=== PATIENT | male | born 1965 | race Caucasian/White ===

== ENCOUNTER → 2018-09-28 | Outpatient (CLI) | payer BC ==
[2018-09-28 17:23] LABS: HGB 16.1 gm/dL (13.0-17.5); MCH 28.7 pg (25.0-35.0); MCHC 32.9 g/dL (31.0-37.0); MCV 87.3 fL (80.0-100.0); Mean Platelet Volume 6.7; Platelet Count 228 k/uL (150-450); RBC 5.61 m/uL (4.30-5.90); RDW 12.5 % (11.5-15.5); WBC 6.4 k/uL (3.8-10.6)
[2018-09-28 17:31] LABS: Potassium 4.1 mmol/L (3.5-5.1)
== END | disposition home or self-care (01) ==
LOC: LABPAT 16:25
PROVIDERS: ATTEND Internal Medicine Interventional Cardiology
DX: Z01.812 Encounter for preprocedural laboratory examination (principal); I20.9 Angina pectoris, unspecified; I10 Essential (primary) hypertension; E78.1 Pure hyperglyceridemia
CPT/HCPCS: 80051; 82565; 84520; 85027

== ENCOUNTER 2018-10-04 05:28 | Day surgery (SDC) | payer BC ==
[2018-10-02 10:58] VITALS: BMI 29.3
[~2018-10-04 05:28] MED LIST: ASPIRIN 325 MG TAB PO ONE; NITROGLYCERIN SL TABS 0.4 MG TAB SUBLINGUAL PRN; SODIUM CHLORIDE 0.9% 1,000 ML in EMPTY BAG 1 BAG IV ONE
[2018-10-04] MEDS ORDERED: ALPRAZolam 0.25 MG TAB PO PRN (06:00)
[2018-10-04] MEDS ORDERED: VERAPAMIL 2.5 MG/ML 2 ML AMP ONE (06:03)
[2018-10-04] MEDS ORDERED: HEPARIN SODIUM 1,000 UN/ML (10ML VL) ONE (06:04)
[2018-10-04] MEDS ORDERED: LIDOCAINE 1% INJ 10MG/ML (20 ML MDV) ONE (06:04)
[2018-10-04] MEDS ORDERED: fentaNYL (PF) 50 MCG/ML 2 ML AMP ONE (06:04)
[2018-10-04] MEDS ORDERED: SODIUM CHLORIDE 0.9% 1,000 ML IV ONE (06:07)
[2018-10-04 06:13] VITALS: RESP 16
[2018-10-04] MEDS ORDERED: fentaNYL (PF) 50 MCG/ML 2 ML AMP IV ONE (06:27)
[2018-10-04] MEDS ORDERED: LIDOCAINE 1% INJ 10MG/ML (20 ML MDV) SQ ONE (06:30)
[2018-10-04] MEDS ORDERED: VERAPAMIL SYRINGE (5 MG/10 ML) INTRAARTER ONE (06:32)
[2018-10-04] MEDS ORDERED: HEPARIN SODIUM 1,000 UN/ML (10ML VL) IV ONE (06:38)
[2018-10-04] MEDS ORDERED: IOPAMIDOL-370 125ML BTL INJ ONE (06:43)
[2018-10-04] MEDS ORDERED: RX INFO: IV CONTRAST WAS GIVEN 1 EACH MISC MISCELLANE PRN (06:58)
[2018-10-04] MEDS ORDERED: SODIUM CHLORIDE 0.9% 1,000 ML IV SCH (07:00)
[2018-10-04] MEDS ORDERED: NON-FORMULARY DRUG (Omeprazole [Prilosec] 20 MG) PO SCH (07:30)
[2018-10-04] MEDS ORDERED: ASPIRIN 81 MG PO SCH (09:00)
[2018-10-04] MEDS ORDERED: MELOXICAM 7.5 MG TAB PO SCH (09:00)
[2018-10-04] MEDS ORDERED: METOPROL PO SCH (09:00)
[2018-10-04] MEDS ORDERED: EZETIMIBE 10 MG TAB PO SCH (09:00)
--- NOTE | 2018-10-04 09:31 | CC ---
CARDIAC CATHETERIZATION REPORT Mr. Morillo is a 52-year-old male with a known history of hypertension, hyperlipidemia, who has been complaining of new onset exertional chest discomfort and dyspnea on exertion. In view of that, recommendation made regarding cardiac catheterization. The procedure as well as risks and complications were discussed with the patient who is in full understanding and agreement. PROCEDURE: Patient was brought to laboratory tech in the fasting semi-sedated state after receiving fentanyl and Benadryl and achieving moderate conscious sedated state. Using Xylocaine anesthesia and Seldinger technique, a 6-Azerbaijani sheath was introduced in the right radial artery. Selective right and left coronary angiography performed was performed using 5-Azerbaijani 3 and half bend right and left Carter catheter. Multiple views of the coronary artery including hemiaxial views were obtained. Following that a 5-Azerbaijani tight pigtail catheter was introduced in the left ventricle and a 30 degree LARA view of the left ventricle was obtained. Following that, catheter and sheath were removed. Hemostasis was obtained with deployment of TR band. There was no immediate complication. Patient is returned to his room in stable condition. Of note, the patient received 5000 units of intravenous heparin as well as intra-arterial verapamil. FINDINGS: LEFT MAIN: This is a short size vessel bifurcating into left circumflex, left anterior descending artery, left main coronary artery has no evidence of high-grade stenosis. LEFT ANTERIOR DESCENDING ARTERY: This is a large-sized vessel reaching toward the apex with a wraparound apex segment giving rise to a diagonal branch. The second one is large in caliber. The left anterior descending artery as well as branches have no evidence of obstructive disease. LEFT CIRCUMFLEX: This is a nondominant vessel giving rise to 3 obtuse marginal branches. The first one is the largest in caliber. The left circumflex as well as branches have no evidence of obstructive coronary artery disease. RIGHT CORONARY ARTERY: This is a dominant vessel bifurcating distally into the PDA and posterolateral segment and branches. The right coronary artery and its branches have no evidence of obstructive coronary artery disease. LEFT VENTRICULOGRAM is performed in 30 degree LARA view and revealed normal left ventricular size and systolic function. The ejection fraction is 60%. There was no significant mitral regurgitation. HEMODYNAMICS: There was no gradient across the aortic valve. The left ventricle end- diastolic pressure was 12 mmHg. CONCLUSION: 1. Normal coronary arteries. 2. Normal left ventricular size and systolic function. RECOMMENDATIONS: In view of findings and anatomy, I recommend continue medical therapy with aggressive coronary risk modifications that has been initiated. Those findings and recommendation were discussed with the patient and his family who are in full understanding and agreement. Duration of procedure is 17 minutes. MMARTUROL / IJN: [id number] /
[2018-10-04 10:50] VITALS: BP 107/72; PULSE 68
[2018-10-04] MEDS ORDERED: NIACIN 1000 MG PO SCH (21:00)
== END 2018-10-04 11:58 | disposition home or self-care (01) ==
LOC: CATHCVL 05:28
PROVIDERS: ATTEND Internal Medicine Interventional Cardiology
DX: R07.89 Other chest pain (principal); R06.00 Dyspnea, unspecified; I10 Essential (primary) hypertension; E78.2 Mixed hyperlipidemia; Z79.1 Long term (current) use of non-steroidal anti-inflammatories (NSAID); Z79.82 Long term (current) use of aspirin; Z79.899 Other long term (current) drug therapy; Z88.2 Allergy status to sulfonamides
CPT/HCPCS: 93458; C1894; C1769; J2001; J3010; J1644; Q9967

== ENCOUNTER 2019-05-18 07:58 | Emergency (ER) | payer BC ==
[2019-05-18 08:12] VITALS: BP 114/73; PULSE 62; RESP 16; TEMP 98.1
--- NOTE | 2019-05-18 08:41 | ED ---
Fall HPI - General Chief Complaint: Fall Stated Complaint: fall, shoulder injury Time Seen by Provider: 05/18/19 08:13 Source: patient, RN notes reviewed Mode of arrival: ambulatory Limitations: no limitations - History of Present Illness Initial Comments: This is a 53-year-old male presents emergency Department chief complaint of right shoulder and clavicle pain. Patient states that he got up in the middle of the night and states he tripped and fell. Patient states he has pain and swelling along his clavicle on the right. Denies any head injury no loss consciousness no neck pain no current headache. Patient states that he's had no prior fractures she has pain with movement of his right shoulder but denies any paresthesias. - Related Data Home Medications Medication Instructions Recorded Confirmed Ezetimibe [Zetia] 10 mg PO DAILY 12/08/14 10/04/18 Meloxicam [Mobic] 7.5 mg PO BID 12/08/14 10/04/18 Niacin [Niaspan] 1,000 mg PO HS 12/08/14 10/04/18 Omeprazole [PriLOSEC] 20 mg PO AC-BRKFST 12/08/14 10/04/18 Aspirin [Children's Aspirin] 81 mg PO DAILY 10/02/18 10/04/18 Metoprol (Unknown Dose) 25 mg PO BID 10/02/18 Allergies Allergy/AdvReac Type Severity Reaction Status Date / Time Sulfa (Sulfonamide Allergy Rash/Hives Verified 05/18/19 08:12 Antibiotics) Review of Systems ROS Statement: Those systems with pertinent positive or pertinent negative responses have been documented in the HPI. ROS Other: All systems not noted in ROS Statement are negative. Past Medical History Past Medical History: GERD/Reflux, Hyperlipidemia, Osteoarthritis (OA), Sleep Apnea/CPAP/BIPAP History of Any Multi-Drug Resistant Organisms: None Reported Past Surgical History: No Surgical Hx Reported Additional Past Surgical History / Comment(s): colonoscopy Past Anesthesia/Blood Transfusion Reactions: No Reported Reaction Past Psychological History: No Psychological Hx Reported Past Alcohol Use History: Rare General Exam Limitations: no limitations General appearance: alert, in no apparent distress Head exam: Present: atraumatic, normocephalic, normal inspection Eye exam: Present: normal appearance, PERRL, EOMI. Absent: scleral icterus, conjunctival injection, periorbital swelling ENT exam: Present: normal exam, normal oropharynx, mucous membranes moist Neck exam: Present: normal inspection, full ROM. Absent: tenderness, meningismus, lymphadenopathy Respiratory exam: Present: normal lung sounds bilaterally, chest wall tenderness. Absent: respiratory distress, wheezes, rales, rhonchi, stridor Cardiovascular Exam: Present: regular rate, normal rhythm, normal heart sounds. Absent: systolic murmur, diastolic murmur, rubs, gallop, clicks GI/Abdominal exam: Present: soft, normal bowel sounds. Absent: distended, tenderness, guarding, rebound, rigid Extremities exam: Present: other (There is an abrasion, ecchymotic region on the right posterior shoulder with tenderness palpation, tenderness across the clavicle more tenderness to the medial aspect towards the sternum) Neurological exam: Present: alert, oriented X3, CN II-XII intact, reflexes normal. Absent: motor sensory deficit Skin exam: Present: warm, dry, intact, normal color. Absent: rash Course Vital Signs 05/18/19 08:09 Temperature 98.1 F Pulse Rate 62 Respiratory 16 Rate Blood Pressure 114/73 O2 Sat by Pulse 96 Oximetry Medical Decision Making - Medical Decision Making 53-year-old male presented for fall, right clavicle injury x-rays were initially obtained which shows evidence of comminuted clavicle fracture there was concern for crepitus and possible intubation exam CT was obtained which is shows large hematoma. There is a redemonstrated proximal clavicle fracture. Patient is stable is neurovascularly intact and we placed a sling and follow-up with orthopedics on Monday. Disposition Clinical Impression: Fall, Closed displaced fracture of clavicle Disposition: HOME SELF-CARE Condition: Stable Instructions (If sedation given, give patient instructions): Clavicle Fracture (ED) Additional Instructions: Please return to the Emergency Department if symptoms worsen or any other concerns. Is patient prescribed a controlled substance at d/c from ED?: No Referrals: Demar Patten MD [Primary Care Provider] - 1-2 days Eusebio Berman MD [STAFF PHYSICIAN] - 1-2 days Time of Disposition: 10:58
--- NOTE | 2019-05-18 08:53 | XR ---
EXAMINATION TYPE: XR chest 2V DATE OF EXAM: 05/18/2019 HISTORY: pain. REFERENCE: Previous study dated 09/13/2018. FINDINGS: The lungs are overinflated. The lungs are clear. Pleural spaces are clear. I do not see a c lavicular fracture. IMPRESSION: COPD.
--- NOTE | 2019-05-18 08:56 | XR ---
EXAMINATION TYPE: XR shoulder complete RT , 3 VIEWS DATE OF EXAM ORDERED: 05/18/2019 HISTORY: Pain. COMPARISON: None. FINDINGS: There is a comminuted fracture the proximal clavicle on the right. The shoulder is otherw ise unremarkable. There are mild degenerative changes present in the distal left AC joint.. IMPRESSION: COMMINUTED FRACTURE THE PROXIMAL RIGHT CLAVICLE. CODE: INITIAL ENCOUNTER FOR CLOSED FRACTURE.
--- NOTE | 2019-05-18 10:35 | CT ---
EXAMINATION TYPE: CT neck chest without con DATE OF EXAM: 05/18/2019 COMPARISON: None. HISTORY: Fall, shoulder injury CT DLP: 1093.1 mGycm Automated exposure control for dose reduction was used. FINDINGS: There is a comminuted fracture of the proximal right clavicle. Displacement is a width of t he clavicular shaft. There is a hematoma surrounding the fracture site. There is a reversal of the normal cervical lordosis. Vertebral body height and alignment are maintain ed. Atlantoaxial relationships are normal. There is mild degenerative disc disease and hypertrophic s pondylosis at C5-6 and C6-7. The facet and uncovertebral joints are unremarkable. No cervical spine f racture is seen. No definite protrusion is seen. There is mild dependent atelectasis in the dependent portions of both lungs. The lungs are otherwise clear. There is no evidence of bony contusion or pneumothorax. There is no significant axillary, mediastinal or hilar adenopathy. There is no pleural or pericardial fluid. The heart is not enlarged. Visualized portions of the upper abdomen are unremarkable. Visualized portions of the ribs demonstrate no evidence of rib fracture. IMPRESSION: 1. MILDLY DISPLACED AND COMMINUTED FRACTURE THE PROXIMAL RIGHT CLAVICLE WITH ASSOCIATED HEMATOMA. 2. DEGENERATIVE CHANGE WITHIN THE CERVICAL SPINE.
[2019-05-18] MEDS ORDERED: ACET/COD 300 MG/30 MG STARTER PACK 6 TAB BTL PO STA (10:59)
== END 2019-05-18 12:15 | disposition home or self-care (01) ==
LOC: EC 07:58
DX: S42.001A Fracture of unspecified part of right clavicle, initial encounter for closed fracture (principal); S40.011A Contusion of right shoulder, initial encounter; K21.9 Gastro-esophageal reflux disease without esophagitis; E78.5 Hyperlipidemia, unspecified; M19.90 Unspecified osteoarthritis, unspecified site; G47.30 Sleep apnea, unspecified; Z99.89 Dependence on other enabling machines and devices; Z79.1 Long term (current) use of non-steroidal anti-inflammatories (NSAID); Z79.82 Long term (current) use of aspirin; Z79.899 Other long term (current) drug therapy; Z88.2 Allergy status to sulfonamides; W01.0XXA Fall on same level from slipping, tripping and stumbling without subsequent striking against object, initial encounter; Y93.01 Activity, walking, marching and hiking
CPT/HCPCS: 70490; 71046; 71250; 99284

== ENCOUNTER 2020-04-20 07:17 | Day surgery (SDC) | payer BC ==
[2020-04-16 13:29] VITALS: BMI 32.1
[~2020-04-20 07:17] MED LIST changes: -ASPIRIN 325 MG TAB PO ONE; +LACTATED RINGERS 1,000 ML IV SCH; -NITROGLYCERIN SL TABS 0.4 MG TAB SUBLINGUAL PRN; -SODIUM CHLORIDE 0.9% 1,000 ML in EMPTY BAG 1 BAG IV ONE
[2020-04-20 07:42] VITALS: RESP 16; TEMP 97
[2020-04-20] MEDS ORDERED: LIDOCAINE 1% (10MG/ML) FOR IV START INTRADERMA ONE (07:50)
[2020-04-20] MEDS ORDERED: MIDAZOLAM 2 MG/2 ML VIAL ONE (08:30)
[2020-04-20] MEDS ORDERED: fentaNYL (PF) 50 MCG/ML 2 ML AMP ONE (08:30)
[2020-04-20] MEDS ORDERED: PROPOFOL 10 MG/ML 20 ML VIAL IV ONE (08:30)
[2020-04-20] MEDS ORDERED: LIDOCAINE 1% INJ 10MG/ML (20 ML MDV) ONE (08:30)
--- NOTE | 2020-04-20 09:00 | P.PCN ---
Date of Procedure: 04/20/20 Description of Procedure: BRIEF HISTORY: Patient is a 54-year-old male who presents for outpatient colonoscopy for evaluation given a family history of colon cancer. He denies any change in bowel habits, blood per rectum or abdominal pain. Last colonoscopy 5 years ago. Colon cancer in his maternal grandmother and his maternal uncle. PROCEDURE PERFORMED: Colonoscopy with polypectomy. PREOPERATIVE DIAGNOSIS: Family history of colon cancer, last colonoscopy 5 years ago. ESTIMATED BLOOD LOSS: Minimal. IV sedation per Anesthesia. PROCEDURE: After informed consent was obtained, the patient, was brought into the endoscopy unit. IV sedation was administered by Anesthesia under continuous monitoring. Digital rectal examination was normal. Initially the Olympus CF-190 flexible video colonoscope was then inserted in the rectum, gradually advanced into the cecum without any difficulty. Careful examination was performed as the scope was gradually being withdrawn. Ileocecal valve and the appendiceal orifice were visualized and appeared normal. Prep was excellent. Mucosa of the cecum, ascending colon, transverse colon, descending colon, sigmoid colon, and rectum appeared normal. A few scattered diverticula noted in the sigmoid colon. A flat 6 mm transverse colon polyp removed with cold snare polypectomy. Retroflexion was performed in the rectum and no lesions were seen. The patient tolerated the procedure well. IMPRESSION: Transverse colon polyp removed with cold snare polypectomy. Mild sigmoid diverticulosis. RECOMMENDATIONS: Findings of this examination were discussed with the patient. Okay to resume high-fiber diet. Okay to resume medications. Await pathology from polypectomy. Would recommend repeat colonoscopy in 5 years for family history of colon cancer.
[2020-04-20 09:29] VITALS: BP 101/69; PULSE 52
== END 2020-04-20 09:37 | disposition home or self-care (01) ==
LOC: ORWHC2ENDO 07:17
PROVIDERS: ATTEND Internal Medicine
DX: Z12.11 Encounter for screening for malignant neoplasm of colon (principal); K63.5 Polyp of colon; K57.30 Diverticulosis of large intestine without perforation or abscess without bleeding; I10 Essential (primary) hypertension; E78.5 Hyperlipidemia, unspecified; G47.33 Obstructive sleep apnea (adult) (pediatric); M19.90 Unspecified osteoarthritis, unspecified site; K21.9 Gastro-esophageal reflux disease without esophagitis; E66.9 Obesity, unspecified; J45.990 Exercise induced bronchospasm; Z88.2 Allergy status to sulfonamides; Z80.0 Family history of malignant neoplasm of digestive organs; Z79.899 Other long term (current) drug therapy; Z99.89 Dependence on other enabling machines and devices; Z79.1 Long term (current) use of non-steroidal anti-inflammatories (NSAID); Z68.32 Body mass index [BMI] 32.0-32.9, adult
CPT/HCPCS: 45385; 88305; J2250; J2001; J3010; J2704; 45380

== ENCOUNTER 2021-08-27 13:30 | Emergency (ER) | payer BC ==
[2021-08-27 14:31] LABS: Basophils % (A) 0 %; Eosinophils # (A) 0.2 k/uL (0-0.7); Eosinophils % (A) 2 %; HCT 53.3 % (39.0-53.0); HGB 17.8 gm/dL (13.0-17.5); Lymphocytes # (A) 1.9 k/uL (1.0-4.8); Lymphocytes % (A) 20 %; MCH 30.1 pg (25.0-35.0); MCHC 33.5 g/dL (31.0-37.0); MCV 89.9 fL (80.0-100.0); Mean Platelet Volume 7.9; Monocytes # (A) 0.7 k/uL (0-1.0); Monocytes % (A) 7 %; Neutrophils # (A) 6.3 k/uL (1.3-7.7); Neutrophils % (A) 68 %; Platelet Count 138 k/uL (150-450); RBC 5.93 m/uL (4.30-5.90); RDW 12.6 % (11.5-15.5); WBC 9.2 k/uL (3.8-10.6)
[2021-08-27 14:46] LABS: ALT 56 U/L (4-49); AST 53 U/L (17-59); African American GFR (CKD) >90 (>60 ml/min/1.73 sqM); Albumin 4.2 g/dL (3.5-5.0); Alkaline Phosphatase 83 U/L (38-126); Anion Gap 10 mmol/L; Blood Urea Nitrogen 14 mg/dL (9-20); Calcium 9.4 mg/dL (8.4-10.2); Carbon Dioxide 20 mmol/L (22-30); Chloride 108 mmol/L (98-107); Glucose 112 mg/dL (74-99); Non-African American GFR(CKD) 82 (>60 ml/min/1.73 sqM); Potassium 4.6 mmol/L (3.5-5.1); Sodium 138 mmol/L (137-145); Total Bilirubin 0.9 mg/dL (0.2-1.3); Total Protein 7.7 g/dL (6.3-8.2)
[2021-08-27 14:59] LABS: INR 0.9 (<1.2); Partial Thromboplastin Time 21.9 sec (22.0-30.0); Prothrombin Time 10.2 sec (9.0-12.0)
--- NOTE | 2021-08-27 17:14 | ED ---
General Adult HPI - General Chief complaint: Extremity Problem,Nontraumatic Stated complaint: Irregular US Time Seen by Provider: 08/27/21 15:46 Source: patient Mode of arrival: ambulatory Limitations: no limitations - History of Present Illness Initial comments: 55-year-old male presents to the emergency department as directed by ultrasound. Patient reports he was seen by his primary care provider earlier today for evaluation of right lower leg pain and swelling that began on Monday and has persisted throughout the week. Patient states his primary care provider ordered an ultrasound of the right lower extremity; was informed that it was positive for blood clot. Patient denies any recent travel hard drives, or prolonged immobilization. He reports minimal discomfort at rest. Patient denies fever, chills, headache, dizziness, chest pain, shortness of breath, tightness in his chest, abdominal pain, or bowel or bladder changes. - Related Data Home Medications Medication Instructions Recorded Confirmed Omeprazole [PriLOSEC] 20 mg PO AC-BRKFST 12/08/14 08/27/21 Aspirin 81 mg PO DAILY 12/31/19 08/27/21 Ezetimibe [Zetia] 10 mg PO DAILY 12/31/19 08/27/21 Meloxicam [Mobic] 7.5 mg PO BID 12/31/19 08/27/21 Metoprolol Tartrate [Lopressor] 25 mg PO BID 12/31/19 08/27/21 Niacin [Niaspan] 500 mg PO HS 12/31/19 08/27/21 Levothyroxine Sodium [Synthroid] 25 mcg PO DAILY 08/27/21 08/27/21 Losartan Potassium [Cozaar] 50 mg PO DAILY 08/27/21 08/27/21 Previous Rx's Medication Instructions Recorded Apixaban [Eliquis] 5 mg PO BID 30 Days #70 tab 08/27/21 Allergies Allergy/AdvReac Type Severity Reaction Status Date / Time Sulfa (Sulfonamide Allergy Rash/Hives Verified 08/27/21 16:20 Antibiotics) Review of Systems ROS Statement: Those systems with pertinent positive or pertinent negative responses have been documented in the HPI. ROS Other: All systems not noted in ROS Statement are negative. Past Medical History Past Medical History: Asthma, GERD/Reflux, Hyperlipidemia, Hypertension, Osteoarthritis (OA), Sleep Apnea/CPAP/BIPAP Additional Past Medical History / Comment(s): excercised induced asthma,uses cpap History of Any Multi-Drug Resistant Organisms: None Reported Past Surgical History: Heart Catheterization Additional Past Surgical History / Comment(s): colonoscopy Past Anesthesia/Blood Transfusion Reactions: No Reported Reaction Past Psychological History: No Psychological Hx Reported Smoking Status: Never smoker Past Alcohol Use History: Occasional Past Drug Use History: None Reported - Past Family History Brother(s) Family Medical History: Deep Vein Thrombosis (DVT) General Exam Limitations: no limitations (This is a well-developed, well-nourished male in no acute distress. Initial temperature 98.8, pulse 86, respirations 20, blood pressure 111/70, pulse ox 95% on room air.) General appearance: alert, in no apparent distress Head exam: Present: atraumatic, normocephalic, normal inspection Respiratory exam: Present: normal lung sounds bilaterally. Absent: respiratory distress, wheezes, rales, rhonchi, stridor Cardiovascular Exam: Present: regular rate, normal rhythm, normal heart sounds. Absent: systolic murmur, diastolic murmur, rubs, gallop, clicks GI/Abdominal exam: Present: soft, normal bowel sounds. Absent: distended, tenderness, guarding, rebound, rigid Left Upper Leg exam: Present: normal inspection, full ROM. Absent: tenderness, swelling Lower Leg exam: Present: normal inspection, full ROM. Absent: tenderness, swelling, Homans' sign Ankle exam: Present: normal inspection, full ROM. Absent: tenderness, swelling Neurovascular tendon exam: Present: no vascular compromise (+2 pedal and posttibial pulses). Absent: pulse deficit, abnormal cap refill, motor deficit, sensory deficit, extremity cold to touch Right Upper Leg exam: Present: normal inspection, full ROM. Absent: tenderness, swelling Lower Leg exam: Present: tenderness (Moderate calf tenderness especially with activity), swelling (Noticeable swelling when comparing right and left extremities; lower leg is slightly warm to touch; no erythema or pitting edema). Absent: Homans' sign Ankle exam: Present: normal inspection Neurovascular tendon exam: Present: no vascular compromise. Absent: pulse deficit, abnormal cap refill, motor deficit, sensory deficit Neurological exam: Present: alert, oriented X3, CN II-XII intact Expanded Patient oriented to: Present: person, place, time Speech: Present: fluid speech Cranial nerves: EOM's Intact: Normal Motor strength exam: RUE: 5, LUE: 5, RLE: 5, LLE: 5 Eye Response: (4) open spontaneously Motor Response: (6) obeys commands Verbal Response: (5) oriented [place] Total: 15 Psychiatric exam: Present: normal affect, normal mood Skin exam: Present: warm, dry, intact, normal color. Absent: rash Course Vital Signs 08/27/21 08/27/21 14:06 18:07 Temperature 98.8 F 98.6 F Pulse Rate 86 82 Respiratory 20 18 Rate Blood Pressure 111/78 120/74 O2 Sat by Pulse 95 96 Oximetry - Reevaluation(s) Reevaluation #1: 08/27/21 17:[address] Patten regarding therapeutic care for this patient. Medical Decision Making - Medical Decision Making 55-year-old male with a history of hypertension and high cholesterol, presents to the emergency department for evaluation of DVT to the right lower extremity. Upon exam, the right lower leg is more swollen when compared with the left, and patient reports mild to moderate discomfort with activity. Patient is neurologically intact. Denies headache, chest pain, or shortness of breath; states he has not been on any long trips or had prolonged immobilization recently. Laboratory specimens were unremarkable. Outpatient ultrasound was reviewed and shows internal echoes seen from right calf up through mid femoral vein, unable to compress paints with no color flow detected. Spoke with Dr. Patten regarding results and plan of care. Patient will be discharged home on Eliquis; first dose given prior to departure and patient was provided with the trial packet to take to his pharmacy. Instructed to call Dr. Patten to schedule a follow-up appointment. Return parameters were discussed in detail. Anticoagulation risks and red flags were reviewed at length. Patient verbalizes understanding and agrees with this plan. This patient's care was reviewed with my attending . - Lab Data Result diagrams: 08/27/21 14:15 08/27/21 14:15 Lab Results 08/27/21 08/27/21 08/27/21 Range/Units 14:15 14:15 14:15 WBC 9.2 (3.8-10.6) k/uL RBC 5.93 H (4.30-5.90) m/uL Hgb 17.8 H (13.0-17.5) gm/dL Hct 53.3 H (39.0-53.0) % MCV 89.9 (80.0-100.0) fL MCH 30.1 (25.0-35.0) pg MCHC 33.5 (31.0-37.0) g/dL RDW 12.6 (11.5-15.5) % Plt Count 138 L (150-450) k/uL MPV 7.9 Neutrophils % 68 % Lymphocytes % 20 % Monocytes % 7 % Eosinophils % 2 % Basophils % 0 % Neutrophils # 6.3 (1.3-7.7) k/uL Lymphocytes # 1.9 (1.0-4.8) k/uL Monocytes # 0.7 (0-1.0) k/uL Eosinophils # 0.2 (0-0.7) k/uL Basophils # 0.0 (0-0.2) k/uL PT 10.2 (9.0-12.0) sec INR 0.9 (<1.2) APTT 21.9 L (22.0-30.0) sec Sodium 138 (137-145) mmol/L Potassium 4.6 (3.5-5.1) mmol/L Chloride 108 H (98-107) mmol/L Carbon Dioxide 20 L (22-30) mmol/L Anion Gap 10 mmol/L BUN 14 (9-20) mg/dL Creatinine 1.01 (0.66-1.25) mg/dL Est GFR (CKD-EPI)AfAm >90 (>60 ml/min/1.73 sqM) Est GFR (CKD-EPI)NonAf 82 (>60 ml/min/1.73 sqM) Glucose 112 H (74-99) mg/dL Calcium 9.4 (8.4-10.2) mg/dL Total Bilirubin 0.9 (0.2-1.3) mg/dL AST 53 (17-59) U/L ALT 56 H (4-49) U/L Alkaline Phosphatase 83 (38-126) U/L Total Protein 7.7 (6.3-8.2) g/dL Albumin 4.2 (3.5-5.0) g/dL Disposition Clinical Impression: Deep vein thrombosis (DVT) of right lower extremity Disposition: HOME SELF-CARE Condition: Stable Instructions (If sedation given, give patient instructions): Deep Vein Thrombos is (ED), Safe Use of Anticoagulants (ED) Additional Instructions: You are being prescribed a blood thinning medicine called Eliquis. It is important that you get this medication filled and take it exactly as directed. Please call Dr. Patten's office on Monday morning to schedule a follow-up visit. Return to the emergency department with any chest pain, shortness of breath, tightness in her chest, severe headache, or bleeding that you are unable to control. Prescriptions: Apixaban [Eliquis] 5 mg PO BID 30 Days #70 tab Is patient prescribed a controlled substance at d/c from ED?: No Referrals: Demar Patten MD [Primary Care Provider] - 1-2 days Time of Disposition: 17:32
[2021-08-27] MEDS ORDERED: APIXABAN 5 MG TAB PO STA (17:18)
[2021-08-27 18:10] VITALS: BP 120/74; PULSE 82; RESP 18; TEMP 98.6
== END 2021-08-27 18:07 | disposition home or self-care (01) ==
LOC: EC 13:30
DX: I82.491 Acute embolism and thrombosis of other specified deep vein of right lower extremity (principal); J45.909 Unspecified asthma, uncomplicated; K21.9 Gastro-esophageal reflux disease without esophagitis; E78.5 Hyperlipidemia, unspecified; I10 Essential (primary) hypertension; M19.90 Unspecified osteoarthritis, unspecified site; Z79.82 Long term (current) use of aspirin; Z79.01 Long term (current) use of anticoagulants; Z88.2 Allergy status to sulfonamides
CPT/HCPCS: 36415; 80053; 85025; 85610; 85730; 99283

== ENCOUNTER → 2021-08-27 | Outpatient (CLI) | payer BC ==
--- NOTE | 2021-08-27 13:42 | US ---
EXAMINATION TYPE: US venous doppler duplex LE RT DATE OF EXAM: 08/27/2021 1:08 PM COMPARISON: NONE CLINICAL HISTORY: M79.661,R22.41 PAIN IN RT LOWER LIMB. pain and stiffness within right calf vein SIDE PERFORMED: Right TECHNIQUE: The lower extremity deep venous system is examined utilizing real time linear array sonog henok with graded compression, doppler sonography and color-flow sonography. VESSELS IMAGED: Common Femoral Vein Deep Femoral Vein Greater Saphenous Vein * Femoral Vein Popliteal Vein Proximal Calf Veins (* superficial vessels) Right Leg: Internal echoes seen from calf up through mid femoral vein, unable to compress veins with no color flow detected. paged Dr Patten's twice with no answer, tech will walk patient down to ER to be assessed. IMPRESSION: Deep vein thrombosis mid femoral vein through calf.
== END | disposition home or self-care (01) ==
LOC: RADUSWWP 12:44
PROVIDERS: ATTEND Internal Medicine
DX: I82.411 Acute embolism and thrombosis of right femoral vein (principal); I82.4Z1 Acute embolism and thrombosis of unspecified deep veins of right distal lower extremity

== ENCOUNTER → 2023-03-15 | Outpatient (CLI) | payer BC | LOC: 3 N SLEEP 15:06 | PROVIDERS: ATTEND Internal Medicine | DX: R06.81 Apnea, not elsewhere classified (principal); R06.83 Snoring; R53.83 Other fatigue; Z88.2 Allergy status to sulfonamides | CPT/HCPCS: 99202; 99211 ==

== ENCOUNTER → 2023-04-24 | Outpatient (CLI) | payer BC ==
--- NOTE | 2023-04-27 10:46 | P.PCN ---
Description of Procedure: POLYSOMNOGRAPHY REPORT PROCEDURE(S)/DATE(S): Polysomnography 04/24/2023 CLINICAL: Patient has been seen in the sleep center for evaluation of obstructive sleep apnea-hypopnea syndrome. Please see my consultation. Sleep study has been done for evaluation of patient breathing during the sleep. PROCEDURE: The standard montage for clinical polysomnography included the electroencephalogram, the electrooculogram, the mentalis surface electromyography and Lead II cardiography. The respiratory battery consisted of measurements of nasal/buccal air flow, pressure transducer measurements from nose, thoracic and/or abdominal effort and intercostal surface electromyography. Video monitoring has been done to check for any parasomnia events. Nocturnal oxyhemoglobin saturations were obtained by finger oximetry. Step-amaral titration with positive airway pressure was utilized to control the respiratory events, if necessary. RESULTS: During the diagnostic sleep study sleep efficiency was practically normal 87.7 %. Latency to sleep onset was normal 21 min. Sleep architecture showed stage NI was short 1.7 %, Delta sleep was borderline 5.0 %, REM sleep was decreased to 10.8 %. Respiratory channel showed 14 obstructive apneas, 1 mixed apneas, 0 central apneas, 109 hypopneas with lowest oxygen level 81 %. Total apnea hypopnea index was 21.1. Heart rate was in the range between 57 and 67, average 62. EMG showed no periodic limb movements. IMPRESSIONS: 1. Obstructive sleep apnea hypopnea syndrome in moderate range. 2. No periodic limb movements have been documented. Please see other impressions from consultation PLAN: 1. The patient will have PAP titration for correction of respiratory abnormalities during the sleep. 2. Losing weight program. 3. Sleep hygiene with regular time in bed for at least 7-1/2 hours. 4. No driving if feeling sleepiness. Thank you very much for allowing me to participate in the management of your patient. Sincerely, Gera Hurt MD, PhD, FAASM. Diplomat of [place] [employer], Sleep Medicine Board by [place] Technical Architect of [facility] [place]
== END ==
LOC: 3 N SLEEP 19:18 → EDSTATUS 19:20
PROVIDERS: ATTEND Internal Medicine
DX: G47.33 Obstructive sleep apnea (adult) (pediatric) (principal); Z99.89 Dependence on other enabling machines and devices; Z88.2 Allergy status to sulfonamides
CPT/HCPCS: 95810

== ENCOUNTER → 2023-11-01 | Outpatient (CLI) | payer BC ==
--- NOTE | 2023-11-01 12:15 | P.PN ---
Subjective DATE: 09/01/2024 cc: Demar Patten MD FOLLOW UP VISIT. Patient with obstructive sleep apnea hypopnea syndrome return to sleep center for follow-up visit. Information from previous visit have been reviewed. This is first visit after patient received new CPAP equipment. I explained to the patient results of recent sleep studies which was done. Patient is using PAP equipment every night for the whole night, getting PAP supplies in time. The patient does not have significant problems with the mask, PAP unit and humidification. [place] sleepiness scale is 5, which is normal. I checked information from PAP unit. PAP unit pressure 7-10, average 9.8 cm H2O. Usage is 100 % for more then 4 hours, average 6-3/4 hours per night. Leak is 16.6 l/m, which is in acceptable range. Apnea Hypopnea Index is 1.9, which is normal. MEDICATIONS:1. Metoprolol 2. Losartan 3. Eliquis 4. Synthroid 5. Omeprazole During physical exam: GENERAL: A pleasant patient without any distress. VITAL SIGNS: BP 131/88, HR 64, RR 16, weight 271.8, temperature 97.4, oxygen saturation at room air 97 % . HEENT: PERRLA, EOMI.low position of soft palate, Mallapati 3 . NECK: Supple. No JVD. LUNGS: Clear to percussion and to auscultation. Good air exchange. No wheezing or rhonchi. HEART: S1, S2 regular. ABDOMEN: Soft and nontender.[] EXTREMITIES: No clubbing or cyanosis. BONDING EQUIPMENT OPERATOR: Awake, alert, and oriented x3. No focal deficit. I changed parameters in CPAP unit to the range of the pressure 7-12 cm of water. Impressions: 1. Obstructive sleep apnea-hypopnea syndrome. Patient demonstrated great compliance with treatment, benefiting from treatment. 2. Obesity, patient increased weight on 9 pounds comparing with previous visit. 3. Hypertension. 4. Hypothyroidism. 5. Acid reflux. 6. Hyperlipidemia. Plan: 1. Continue using PAP equipment every night for the whole night. 2. To change air filter at least 1-2 times per month. 3. PAP unit should stay lower then position of the head. 4. Advised patient to remove all remaining water from humidifier canister daily and make it dry after each usage. Refill canister with fresh distilled water before each usage. 5. Sleep hygiene with regular time in bed for at least 8 hours. 6. Precautions related to driving. No driving if feel any sleepiness. 7. I will maintain prescription for PAP supplies including mask, tube, filters. 8. Watching and losing weight. 9. Follow up visit in 6 months or earlier if patient has any problems. Thank you very much for allowing me to participate in the management of your patient. Gera Hurt MD, PhD, FAASM. Diplomat of [place] [employer], Sleep Medicine Board by [place] [employer] Cs Associate of [facility] [place]
== END ==
LOC: 3 N SLEEP 11:25
PROVIDERS: ATTEND Internal Medicine
DX: G47.33 Obstructive sleep apnea (adult) (pediatric) (principal); E03.9 Hypothyroidism, unspecified; E66.9 Obesity, unspecified; E78.5 Hyperlipidemia, unspecified; I10 Essential (primary) hypertension; K21.9 Gastro-esophageal reflux disease without esophagitis; Z79.899 Other long term (current) drug therapy; Z79.01 Long term (current) use of anticoagulants; Z79.890 Hormone replacement therapy; Z99.89 Dependence on other enabling machines and devices; Z88.2 Allergy status to sulfonamides; Z79.82 Long term (current) use of aspirin
CPT/HCPCS: 99212

== ENCOUNTER → 2024-06-12 | Outpatient (CLI) | payer BC ==
[2024-06-12 10:57] VITALS: BP 131/82; PULSE 68; RESP 16; TEMP 98.2
--- NOTE | 2024-06-12 11:14 | P.PROGSL ---
Subjective DATE: 06/12/2024 FOLLOW UP VISIT. Patient with obstructive sleep apnea hypopnea syndrome return to sleep center for follow-up visit. Information from previous visit have been reviewed. Patient is using PAP equipment every night for the whole night, getting PAP supplies in time. The patient does not have significant problems with the mask, PAP unit and humidification. [place] sleepiness scale is 4. I checked information from PAP unit. PAP unit pressure 7-12, average 11.4 cm H2O. Usage is 100% for more then 4 hours, average 6.1 hours per night. Leak is 4 l/m, which is in acceptable range. Apnea Hypopnea Index is 0.8, which is perfect. MEDICATIONS have been reviewed, please see below. During physical exam: GENERAL: A pleasant patient without any distress. VITAL SIGNS: Please see below, weight is 269.8 lbs. HEENT: PERRLA, EOMI.low position of soft palate, Mallapati 3. NECK: Supple. No JVD. LUNGS: Clear to percussion and to auscultation. Good air exchange. No wheezing or rhonchi. HEART: S1, S2 regular. ABDOMEN: Soft and nontender. Slightly obese EXTREMITIES: No clubbing or cyanosis. SIZE PAINTER: Awake, alert, and oriented x3. No focal deficit. Impressions: 1. Obstructive sleep apnea-hypopnea syndrome. Patient demonstrated great compliance with treatment, benefiting from treatment. 2. Hypertension. 3. Obesity, weight is about the same as during previous visit. 4. Hyperlipidemia. 5. Hypothyroidism. 6. Acid reflux. Plan: 1. Continue using PAP equipment every night for the whole night. 2. Sleep hygiene with regular time in bed for at least 7.5-8 hours 3. PAP unit should stay lower then position of the head. 4. Advised patient to remove all remaining water from humidifier canister daily and make it dry after each usage. Refill canister with fresh distilled water before each usage. 5. Watching weight. 6. Precautions related to driving. No driving if feel any sleepiness. 7. I will maintain prescription for PAP supplies including mask, tube, filters. 8. Follow up visit in 6 months or earlier if patient has any problems. Thank you very much for allowing me to participate in the management of your patient. Gera Hurt MD, PhD, FAASM. Diplomat of [place] [employer], Sleep Medicine Board by [place] [employer] Cutting Machine Operator of [facility] [place] Objective - Vital Signs Vital Signs: Vital Signs Temp 98.2 F 06/12/24 10:55 Pulse 68 06/12/24 10:55 Resp 16 06/12/24 10:55 BP 131/82 06/12/24 10:55 Pulse Ox 97 06/12/24 10:55 FiO2 Intake & Output 06/11/24 06/12/24 06/12/24 18:59 06:59 18:59 Weight 122.243 kg Home Medications: Home Medications Medication Instructions Recorded Confirmed Type Omeprazole [PriLOSEC] 20 mg PO AC-BRKFST 12/08/14 08/27/21 History Aspirin 81 mg PO DAILY 12/31/19 08/27/21 History Ezetimibe [Zetia] 10 mg PO DAILY 12/31/19 06/12/24 History Meloxicam [Mobic] 7.5 mg PO BID 12/31/19 06/12/24 History Metoprolol Tartrate [Lopressor] 25 mg PO BID 12/31/19 06/12/24 History Niacin [Niaspan] 500 mg PO HS 12/31/19 06/12/24 History Levothyroxine Sodium [Synthroid] 75 mcg PO DAILY 08/27/21 06/12/24 History Losartan Potassium [Cozaar] 50 mg PO DAILY 08/27/21 06/12/24 History Apixaban [Eliquis] 2.5 mg PO BID 06/12/24 History Rosuvastatin Calcium [Crestor] 5 mg PO DAILY 06/12/24 06/12/24 History
== END ==
LOC: 3 N SLEEP 10:29
PROVIDERS: ATTEND Internal Medicine
CPT/HCPCS: 99212

== ENCOUNTER → 2025-01-22 | Outpatient (CLI) | payer BC ==
[2025-01-22 10:30] VITALS: BP 128/85; PULSE 70; RESP 16; TEMP 97.6
--- NOTE | 2025-01-22 12:29 | P.PROGSL ---
Subjective DATE: 01/22/2025 FOLLOW UP VISIT. Patient with obstructive sleep apnea hypopnea syndrome return to sleep center for follow-up visit. Information from previous visit have been reviewed. Patient is using PAP equipment every night for the whole night, getting PAP supplies in time. The patient does not have significant problems with the mask, PAP unit and humidification. [place] sleepiness scale is 5, which is normal. I checked information from PAP unit. PAP unit pressure 7-12, average 11.5 cm H2O. Usage is 100% for more then 4 hours, average 6 hours per night. Leak is 8 l/m, which is in acceptable range. Apnea Hypopnea Index is 0.4, which is normal. MEDICATIONS have been reviewed, please see below. During physical exam: GENERAL: A pleasant patient without any distress. VITAL SIGNS: Please see below, weight is 279 lbs. HEENT: PERRLA, EOMI.low position of soft palate, Mallapati 3. NECK: Supple. No JVD. LUNGS: Clear to percussion and to auscultation. Good air exchange. No wheezing or rhonchi. HEART: S1, S2 regular. ABDOMEN: Soft and nontender.[] EXTREMITIES: No clubbing or cyanosis. FERRY OPERATOR: Awake, alert, and oriented x3. No focal deficit. Impressions: 1. Obstructive sleep apnea-hypopnea syndrome. Patient demonstrated great compliance with treatment, benefiting from treatment. 2. Obesity, BMI 37.3, patient increased weight on 10 pounds comparing with previous visit. 3. Hypertension. 4. Hyperlipidemia. 5. Hypothyroidism. 6. Acid reflux. Plan: 1. Continue using PAP equipment every night for the whole night. 2. Sleep hygiene with regular time in bed for at least 7.5-8 hours 3. PAP unit should stay lower then position of the head. 4. Advised patient to remove all remaining water from humidifier canister daily and make it dry after each usage. Refill canister with fresh distilled water before each usage. 5. Watching and losing weight. 6. Precautions related to driving. No driving if feel any sleepiness. 7. I will maintain prescription for PAP supplies including mask, tube, filters. 8. Follow up visit in 8 months or earlier if patient has any problems. Thank you very much for allowing me to participate in the management of your patient. Gera Hurt MD, PhD, FAASM. Diplomat of [place] [employer], Sleep Medicine Board by [place] [employer] [facility] [place] Objective - Vital Signs Vital Signs: Vital Signs Temp 97.6 F 01/22/25 10:28 Pulse 70 01/22/25 10:28 Resp 16 01/22/25 10:28 BP 128/85 01/22/25 10:28 Pulse Ox 96 01/22/25 10:28 FiO2 Intake & Output 01/21/25 01/22/25 01/22/25 18:59 06:59 18:59 Weight 126.552 kg Home Medications: Home Medications Medication Instructions Recorded Confirmed Type Omeprazole [PriLOSEC] 20 mg PO AC-BRKFST 12/08/14 08/27/21 History Aspirin 81 mg PO DAILY 12/31/19 08/27/21 History Ezetimibe [Zetia] 10 mg PO DAILY 12/31/19 01/22/25 History Meloxicam [Mobic] 7.5 mg PO BID 12/31/19 01/22/25 History Metoprolol Tartrate [Lopressor] 25 mg PO BID 12/31/19 01/22/25 History Niacin [Niaspan] 500 mg PO HS 12/31/19 01/22/25 History Levothyroxine Sodium [Synthroid] 75 mcg PO DAILY 08/27/21 01/22/25 History Losartan Potassium [Cozaar] 50 mg PO DAILY 08/27/21 01/22/25 History Apixaban [Eliquis] 2.5 mg PO BID 06/12/24 01/22/25 History Rosuvastatin Calcium [Crestor] 5 mg PO DAILY 06/12/24 01/22/25 History
== END ==
LOC: 3 N SLEEP 10:15
PROVIDERS: ATTEND Internal Medicine
DX: G47.33 Obstructive sleep apnea (adult) (pediatric) (principal); E66.9 Obesity, unspecified; I10 Essential (primary) hypertension; E78.5 Hyperlipidemia, unspecified; E03.9 Hypothyroidism, unspecified; K21.9 Gastro-esophageal reflux disease without esophagitis; Z68.37 Body mass index [BMI] 37.0-37.9, adult; Z88.2 Allergy status to sulfonamides
CPT/HCPCS: 99212